=== PATIENT | female | born 1965 ===

== ENCOUNTER → 2018-03-19 21:11 | Outpatient (REF) | payer OTHER, SELFPAY ==
[2018-03-20 01:22] LABS: Free T4, Direct Thyroxine 0.88 ng/dL (0.78-2.19)
[2018-03-20 01:35] LABS: Thyroid Stimulating Hormone 1.57 uIU/mL (0.47-4.68)
[2018-03-21 15:45] LABS: Progesterone < 0.5 ng/mL
[2018-03-24 18:32] LABS: Triiodothyronine T3 Reverse 16 ng/dL (8-25)
[2018-03-24 19:54] LABS: Testosterone Free 0.7 pg/mL (0.1-6.4); Testosterone Total 7 ng/dL (2-45)
== END ==
LOC: LAB 21:11
PROVIDERS: Visit Provider Naturopath
DX: R63.5 Abnormal weight gain (principal); Z13.89 Encounter for screening for other disorder; N95.1 Menopausal and female climacteric states
CPT/HCPCS: 36415; 82672; 84144; 84402; 84403; 84439; 84443; 84481; 84482

== ENCOUNTER → 2018-07-06 21:52 | Outpatient (REF) | payer OTHER, SELFPAY ==
[2018-07-09 13:43] LABS: Testosterone, Total 95.3
[2018-07-10 14:42] LABS: Estrogen 55.5 pg/mL
== END ==
LOC: LAB 21:52
PROVIDERS: Visit Provider Naturopath
DX: F52.31 Female orgasmic disorder (principal); N95.1 Menopausal and female climacteric states
CPT/HCPCS: 36415; 82672; 84144; 84270; 84402; 84403